=== PATIENT | female | born 1995 | race Caucasian/White ===

== ENCOUNTER 2017-10-02 20:55 | Emergency (ER) | payer MEDICAID ==
[2017-10-02 21:03] VITALS: BP 126/86
[2017-10-02] MEDS ORDERED: DOXYCYCLINE 100 MG TABLET PO STA (21:22)
--- NOTE | 2017-10-02 21:24 | ED Physician Documentation ---
PD HPI SKIN - Stated complaint Stated Complaint: POSS SPIDER BITES - Chief complaint Chief Complaint: Wound - History obtained from History obtained from: Patient, Family (mom) - History of Present Illness Timing - onset: Other (She moved from [place] about a month ago. She has a couple day history of spreading slightly painful spot on the right anterior forearm and they also noticed some spots on the back. No fevers. She otherwise feels well. No recollected tick bites.) Review of Systems Constitutional: denies: Fever, Chills GI: denies: Abdominal Pain, Nausea, Vomiting : denies: Now [facility] PAST MEDICAL HISTORY - Past Medical History Past Medical History: Yes GI: GERD Psych: Depression, Anxiety Other Past Medical History: insomnia - Past Surgical History Past Surgical History: Yes Ortho: Other Cardiovascular: Other - Present Medications Home Medications: Ambulatory Orders Medication Instructions Recorded Confirmed Doxycycline Hyclate 100 mg PO BID 14 Days #28 tablet 10/02/17 Omeprazole [PriLOSEC] 1 cap PO DAILY 10/02/17 10/02/17 Trazodone HCl 1 tab PO QPM 10/02/17 10/02/17 - Allergies Allergies/Adverse Reactions: Allergies Allergy/AdvReac Type Severity Reaction Status Date / Time Penicillins Allergy Rash Verified 10/02/17 21:03 - Social History Does the pt smoke?: No Smoking Status: Never smoker Does the pt drink ETOH?: No Does the pt have substance abuse?: No - Immunizations Immunizations are current?: Yes - POLST Patient has POLST: No PD ED PE NORMAL - Vitals Vital signs reviewed: Yes - General General: Alert and oriented X 3, No acute distress - Derm Derm: Other (There is a circular area of cellulitis which a hyperpigmented spot in the middle on the mid anterior right forearm and a couple of other smaller spots of cellulitis on the low back. The ultrasound done bedside of the right arm shows no fluid collection.) - Neuro Neuro: Alert and oriented X 3, Normal speech Results - Vitals Vitals: Vital Signs - 24 hr 10/02/17 21:01 Temperature 36.9 C Heart Rate 95 Respiratory 15 Rate Blood Pressure 126/86 H O2 Saturation 99 Oxygen O2 Source Room air PD MEDICAL DECISION MAKING - ED course ED course: Could be erythema migrans on the right arm, or simple cellulitis. There is nothing to drain at this juncture and she is started on doxycycline. Departure - Departure Disposition: 01 Home, Self Care Clinical Impression: Cellulitis Qualifiers: Site of cellulitis: extremity Site of cellulitis of extremity: upper extremity Laterality: right Qualified Code(s): L03.113 - Cellulitis of right upper limb Condition: Good Record reviewed to determine appropriate education?: Yes Instructions: Cellulitis Dc Prescriptions: Doxycycline Hyclate 100 mg PO BID 14 Days #28 tablet Comments: Return if worse or if you develop more sores or fever. Follow-up with your doctor for results of Lyme testing.
[2017-10-05 19:01] LABS: 18 KD (IGG) BAND NON-REACTIVE; 23 KD (IGG) BAND NON-REACTIVE; 23 KD (IGM) BLOT NON-REACTIVE; 28 KD (IGG) BAND NON-REACTIVE; 30 KD (IGG) BAND NON-REACTIVE; 39 KD (IGG) BAND NON-REACTIVE; 39 KD (IGM) BLOT NON-REACTIVE; 41 KD (IGG) BAND REACTIVE; 41 KD (IGM) BLOT NON-REACTIVE; 45 KD (IGG) BAND NON-REACTIVE; 58 KD (IGG) BAND NON-REACTIVE; 66 KD (IGG) BAND NON-REACTIVE; 93 KD (IGG) BAND NON-REACTIVE
== END 2017-10-02 21:52 | disposition home or self-care (01) ==
LOC: ED 20:55
DX: L03.113 Cellulitis of right upper limb (principal)
CPT/HCPCS: 36415; 86617; 99283; A9270

== ENCOUNTER 2017-12-27 10:57 | Outpatient (CLI) | payer MEDICAID | END 2017-12-27 10:58 | disposition EMS.NT | LOC: EMS 10:57 | PROVIDERS: ATTEND Surgery | DX: M25.531 Pain in right wrist (principal); R07.9 Chest pain, unspecified; V47.5XXA Car driver injured in collision with fixed or stationary object in traffic accident, initial encounter; Y92.414 Local residential or business street as the place of occurrence of the external cause ==

== ENCOUNTER 2017-12-28 17:04 | Emergency (ER) | payer OTHER, MEDICAID ==
--- NOTE | 2017-12-28 18:10 | XRAY Preliminary Report ---
Exam: XR WRIST 4 VIEW RT IMPRESSION: Normal wrist radiography. [facility] SITE ID: [id number]
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
[2017-12-28 19:24] VITALS: BP 108/72
== END 2017-12-28 19:24 | disposition home or self-care (01) ==
LOC: ED 17:04
DX: S63.501A Unspecified sprain of right wrist, initial encounter (principal); V89.2XXA Person injured in unspecified motor-vehicle accident, traffic, initial encounter
CPT/HCPCS: 29125; 99283